=== PATIENT | female | born 1930 | race Caucasian/White ===

== ENCOUNTER 2017-10-05 11:27 | Day surgery (SDC) | payer MEDICARE, OTHER ==
[~2017-10-05] VITALS: Ht 149.9 cm; Wt 46.1 kg
[2017-10-05] VITALS (16 sets, daily range): BP systolic 87–128; BP diastolic 51–88; PULSE 59–110; TEMP 97.2
[2017-10-05 12:42] LABS: MEAN CELL VOLUME 83 fl (80.0-100.0); MEAN CORPUSCULAR HGB CONC 29 g/dl (33.0-37.0); MEAN PLATELET VOLUME 9.2 fl (7.4-10.4); PLATELET COUNT 466 K/mm3 (130-400); RED BLOOD COUNT 3.72 M/mm3 (4.10-5.30); WHITE BLOOD COUNT 7.6 K/mm3 (4.8-10.8)
[2017-10-05 12:48] LABS: INR 1.9 (0.8-3.0); PROTHROMBIN TIME 21.9 SECONDS (9.7-12.8)
[2017-10-05 12:51] LABS: HEMATOCRIT 30.7 % (37.0-47.0); MEAN CORPUSCULAR HEMOGLOBIN 24 pg (27.0-31.0)
[2017-10-05 12:57] LABS: CALCIUM 9.6 mg/dL (8.4-10.2); POTASSIUM 3.6 mmol/L (3.4-5.0)
[2017-10-05 13:09] LABS: CREATININE, serum 0.61 mg/dL (0.52-1.25)
[2017-10-05] MEDS ORDERED: GLUCOPHAGE500 MG/TAB PO (13:10)
[2017-10-05] MEDS ORDERED: CORGARD40 MG PO (13:11)
[2017-10-05] MEDS ORDERED: JANUVIA 100MG100 MG PO (13:11)
[2017-10-05] MEDS ORDERED: LASIX 40MG TABL40 MG PO (13:12)
[2017-10-05] MEDS ORDERED: CRESTOR5 MG PO (13:12)
[2017-10-05] MEDS ORDERED: COUMADIN 2MG2 MG/TAB PO (13:12)
[2017-10-05] MEDS ORDERED: K-DUR20 MEQ PO (13:13)
[2017-10-05] MEDS ORDERED: CORDARONE200 MG/TAB PO (15:59)
== END 2017-10-05 16:30 | disposition home or self-care (01) ==
LOC: COL.CAR 11:27
PROVIDERS: Internal Medicine Interventional Cardiology
DX: I48.2 Chronic atrial fibrillation (principal); I08.3 Combined rheumatic disorders of mitral, aortic and tricuspid valves; I50.32 Chronic diastolic (congestive) heart failure; J44.9 Chronic obstructive pulmonary disease, unspecified; I51.7 Cardiomegaly; E11.9 Type 2 diabetes mellitus without complications; Z79.01 Long term (current) use of anticoagulants; Z79.84 Long term (current) use of oral hypoglycemic drugs; Z96.649 Presence of unspecified artificial hip joint
CPT/HCPCS: G9654; J0282; J2250; J2704; J7060